=== PATIENT | female | born 1945 | race Caucasian/White ===

== ENCOUNTER 2016-07-24 11:14 | Day surgery (SDC) | payer OTHER ==
[~2016-07-24] VITALS: Ht 157.5 cm; Wt 61.9 kg
[2016-07-24] MEDS ORDERED: CAPTOPRIL (11:57)
[2016-07-24 11:59] VITALS: Ht 157.5 cm; Wt 61.9 kg
[2016-07-24 13:25] VITALS: BP 131/60; PULSE 76; RESP 18
[2016-07-24] MEDS ORDERED: FENTAnyl 50 MCG/ML VIAL ONE (14:11)
[2016-07-24] MEDS ORDERED: MIDAZOLAM 1 MG/ML 2 ML INJ ONE ×2 (14:11)
[2016-07-24 14:35] VITALS: BP 111/62; PULSE 61; RESP 20
--- NOTE | 2016-07-25 01:49 | GILP ---
DATE OF PROCEDURE: PREOPERATIVE DIAGNOSIS: Screening colonoscopy. PROCEDURE DONE: Colonoscopy, biopsy, polyp removal. POSTOPERATIVE DIAGNOSES: 1. Diverticulosis in the left colon. 2. Right and left tortuous colon. DESCRIPTION OF PROCEDURE: The patient was put in left lateral decubitus after obtaining informed co nsent. She was monitored on oximetry, EKG, blood pressure. Sedated with 4 mg IV Versed and 75 mcg of fentanyl. Rectal exam done, which was normal. Advanced a pediatric Olympus video colonoscope all the way to cecum with some difficulty due to very tortuous left colon and right hepatic flexure. Upon reaching the cecum, I recognized a small polyp and this was removed by biopsy forceps. It measured about 2 mm. Then, the scope was slowly withdr awn, examining the rest of the colon all the way to the rectum. Except for diverticulosis in the le ft colon, it was unremarkable. Melanosis coli also noted, very mild. Postop, patient had no complication. Plan will be to await for biopsy report. Follow up as outpati ent. Repeat colonoscopy in 5 years. Dictated By: NARCISO BENITEZ Conf#: [id number] DID#: [id number] CC: Gustavo Hudson; NARCISO COFFMAN M.D.;*EndCC*
== END 2016-07-24 15:28 | disposition home or self-care (01) ==
LOC: GIL 11:14
PROVIDERS: ATTEND Internal Medicine
DX: Z12.11 Encounter for screening for malignant neoplasm of colon (principal); D12.0 Benign neoplasm of cecum; K57.90 Diverticulosis of intestine, part unspecified, without perforation or abscess without bleeding; I10 Essential (primary) hypertension
CPT/HCPCS: 45380; 45381; 88305; J2250; J3010; Z7610